=== PATIENT | female | born 1980 | race African-American/Black ===

== ENCOUNTER 2018-09-02 10:24 | Inpatient (IN) | payer OTHER | END 2018-09-09 13:35 | disposition home or self-care (01) | LOC: JER 10:24 → JERBED 13:12 → J8W 14:33 ==

== ENCOUNTER 2018-11-14 13:48 | Emergency (ER) | payer OTHER ==
[2018-11-14 13:53] VITALS: BP 139/86; PULSE 89; TEMP 98.7; BMI 37.9
== END 2018-11-14 15:15 | disposition left against medical advice (07) ==
LOC: JER 13:48
DX: Z53.21 Procedure and treatment not carried out due to patient leaving prior to being seen by health care provider (principal)
CPT/HCPCS: 99281-25

== ENCOUNTER 2018-11-19 10:11 | Observation (INO) | payer OTHER ==
[2018-11-19 11:51] LABS: EOS % 4.7 % (0-4.5); HEMATOCRIT 38.7 % (32.4-45.2); LYMPH % 29.1 % (8-40); MCH 30.4 pg (25.7-33.7); MCHC 33.7 g/dl (32.0-36.0); MEAN CELL VOLUME 90.4 fl (80-96); MEAN PLT VOLUME 8.1 fl (7.5-11.1); MONO % 6.3 % (3.8-10.2); NEUT % 58.9 % (42.8-82.8); PLATELET COUNT 440 K/MM3 (134-434); RBC 4.29 M/mm3 (3.60-5.2); RDW 15.9 % (11.6-15.6); WHITE BLOOD COUNT 9.9 K/mm3 (4.0-10.0)
--- NOTE | 2018-11-19 11:54 | PDOC ---
History of Present Illness - General Chief Complaint: Chest Pain Stated Complaint: ACID REFLUX Time Seen by Provider: 11/19/18 11:11 History Source: Patient Exam Limitations: Clinical Condition - History of Present Illness Initial Comments: 11/19/18 11:54 Patient with h/o GERD, COPD on spiriva, bipola, HTN present with complains of 4 days h/o burning in the middle of her chest everytime she walks for a period of time. Patient on nexium for GERD and report taking daily. Patient report she was diagnosed with PNA 4 months ago and treated. Patient is a current smoker of 5 cigarettes / day. Denies SOB, palpitations, abd pain, vomitin, diarrhea, dizziness, fever, chills, weakness. 3 Timing/Duration: other (4 days) Past History - Past Medical History Allergies/Adverse Reactions: Allergies Allergy/AdvReac Type Severity Reaction Status Date / Time No Known Drug Allergies Allergy Verified 11/19/18 10:27 cat/dog hair Allergy Hives Uncoded 11/19/18 10:27 dust,dander Allergy watery Uncoded 11/19/18 10:27 itchy eyes/nose,hives Home Medications: Ambulatory Orders Amlodipine Besylate [Norvasc -] 10 mg PO DAILY 09/15/13 Fluticasone Prop 0.05% Nasal [Flonase -] 2 spray NS DAILY 09/15/13 Hydrochlorothiazide [Hctz -] 12.5 mg PO DAILY 09/15/13 Budesonide/Formeterol Fumarate [SYMBICORT 160/4.5mcg -] 2 puff IH BID #1 inhaler 09/09/18 Ipratropium/Albuterol Sulfate [Combivent Respimat Inhal [place]] 4 gm IH QID #1 aer.w.adap 09/09/18 Lactobacillus Acidophilus [Bacid -] 1 tab PO DAILY #7 tab 09/09/18 Lisinopril [Prinivil] 5 mg PO DAILY #30 tablet 09/09/18 Montelukast Na [Singulair -] 10 mg PO HS #30 tablet 09/09/18 predniSONE [Deltasone -] 5 mg PO ASDIR #78 tab 09/09/18 Pantoprazole Sodium [Protonix] 40 mg PO DAILY #20 tablet. 11/19/18 Anemia: No Asthma: Yes Cancer: No Cardiac Disorders: Yes (MURMUR) CVA: No COPD: Yes CHF: No Dementia: No Diabetes: No GI Disorders: Yes (acid reflux) Disorders: No HTN: Yes Hypercholesterolemia: No Liver Disease: No Psychiatric Problems: Yes (DEPRESSION, BIPOLAR) Seizures: No Thyroid Disease: No - Surgical History Abdominal Surgery: No Appendectomy: No Cardiac Surgery: No Cholecystectomy: No Lung Surgery: No Neurologic Surgery: No Orthopedic Surgery: No - Immunization History Immunization Up to Date: Yes - Suicide/Smoking/Psychosocial Hx Smoking Status: Yes Smoking History: Never smoked Have you smoked in the past 12 months: Yes Number of Cigarettes Smoked Daily: 10 Information on smoking cessation initiated: No 'Breaking Loose' booklet given: 09/02/18 Hx Alcohol Use: No Drug/Substance Use Hx: No Substance Use Type: Alcohol Hx Substance Use Treatment: Yes (MARIJUANA) Review of Systems - Review of Systems Able to Perform ROS?: Yes Is the patient limited Albanian proficient: No Constitutional: No: Chills, Fever, Malaise HEENTM: No: Symptoms Reported, See HPI, Eye Pain, Blurred Vision, Tearing, Recent change in vision, Double Vision, Cataracts, Ear Pain, Ocular Prothesis, Ear Discharge, Nose Pain, Nose Congestion, Tinnitus, Nose Bleeding, Hearing Loss , Throat Pain, Throat Swelling, Mouth Pain, Dental Problems, Difficulty Swallowing, Mouth Swelling, Other Respiratory: No: Symptoms reported, See HPI, Cough, Orthopnea, Shortness of Breath, SOB with Exertion, SOB at Rest, Stridor, Wheezing, Productive cough, Hemoptysis, Other Cardiac (ROS): Yes: Symptoms Reported, See HPI, Chest Pain (burning sensation in mid-sternum). No: Edema, Irregular Heart Rate, Lightheadedness, Palpitations , Syncope, Chest Tightness, Other ABD/GI: Yes: Symptoms Reported, See HPI, Abdominal Distended, Nausea, Abdominal cramping (intermittent epigastric pain). No: Vomiting : No: Symptoms Reported, Burning, Dysuria, Discharge, Frequency Musculoskeletal: No: Symptoms Reported Neurological: No: Symptoms reported, See HPI, Ataxia All Other Systems: Reviewed and Negative *Physical Exam - Vital Signs Last Vital Signs Temp Pulse Resp BP Pulse Ox 98.5 F 82 17 114/78 99 11/19/18 10:27 11/19/18 10:27 11/19/18 10:27 11/19/18 10:27 11/19/18 10:27 - Physical Exam Comments: 11/19/18 11:53 GENERAL: Well developed, well nourished. Awake and alert. No acute distress. HEENT: Normocephalic, atraumatic. PERRLA, EOMI. No conjunctival pallor. Sclera are non-icteric. Moist mucous membranes. Oropharynx is clear. NECK: Supple. Full ROM. CARDIOVASCULAR: Regular rate and rhythm. No murmurs, rubs, or gallops. Distal pulses are 2+ and symmetric. PULMONARY: No evidence of respiratory distress. Lungs clear to auscultation bilaterally. No wheezing, rales or rhonchi. ABDOMINAL: Soft. Non-tender. Non-distended. No rebound or guarding. No organomegaly. Normoactive bowel sounds. MUSCULOSKELETAL Normal range of motion at all joints. EXTREMITIES: No cyanosis. No clubbing. No edema. No calf tenderness. SKIN: Warm and dry. Normal capillary refill. No rashes. No jaundice. NEUROLOGICAL: Alert, awake, appropriate. Gait is normal without ataxia. PSYCHIATRIC: Cooperative. Good eye contact. Appropriate mood General Appearance: Yes: Nourished, Appropriately Dressed. No: Apparent Distress ED Treatment Course - LABORATORY CBC & Chemistry Diagram: 11/19/18 11:36 11/19/18 13:20 - RADIOLOGY Radiology Studies Ordered: Category Date Time Status CHEST PA & LAT [RAD] Stat Radiology 11/19/18 11:21 Ordered Medical Decision Making - Medical Decision Making 11/19/18 11:57 Patient with h/o GERD, COPD on spiriva, bipola, HTN present with complains of 4 days h/o burning in the middle of her chest everytime she walks for a period of time. Patient on nexium for GERD and report taking daily. Patient report she was diagnosed with PNA 4 months ago and treated. Patient is a current smoker of 5 cigarettes / day. Denies SOB, palpitations, abd pain, vomitin, diarrhea, dizziness, fever, chills, weakness. 11/19/18 11:57 Exam unremarkable with patient is in no acute distress. Normal cardio exam and lungs clear to auscultation bilateral. Symptoms likely acid reflex from GERD versus less likely cardiogenic painarea CBC, CMP, cardiac profile lab ordered. Chest x-ray ordered to rule out acute chest pathology. EKG ordered to rule out acute cardiac symptoms. Reassess after lab and imaging results 11/19/18 15:56 Chest x-ray unremarkable. EKG shows inverted T waves on V3 to V5. Cardiac profile shows elevated troponins of 0.18. CBC within normal limits. Patient in no acute distress. Patient be admitted to telemetry for management of elevated troponins and abnormal EKG. Hospitalists contacted and agrees to admit patient to Dr. Del Toro. Aspirin 162 mg chew tablet ordered. Patient admitted to telemetry. cardiac consult with Dr. Emanuel gunter to discuss starting patient on heparin and pending call back 11/19/18 16:24 still no callback from cardiology. Will give patient 1 dose of heparin and pt admitted to medicine *DC/Admit/Observation/Transfer Diagnosis at time of Disposition: GERD (gastroesophageal reflux disease) Qualifiers: Esophagitis presence: without esophagitis Qualified Code(s): K21.9 - Gastro- esophageal reflux disease without esophagitis Chest pain Qualifiers: Chest pain type: chest pain on breathing Qualified Code(s): R07.1 - Chest pain on breathing - Discharge Dispostion Disposition: TRANSFER ACUTE CARE/OTHER HOSP Condition at time of disposition: Stable Decision to Admit order: Yes - Prescriptions - Referrals - Patient Instructions - Post Discharge Activity
[2018-11-19 13:57] LABS: BILIRUBIN,TOTAL 0.4 mg/dL (0.2-1); BLOOD UREA NITROGEN 12.1 mg/dL (7-18); CALCIUM 9.1 mg/dL (8.5-10.1); CREATININE 0.7 mg/dL (0.55-1.3); POTASSIUM 4.2 mmol/L (3.5-5.1); TOT PROT 7.4 g/dl (6.4-8.2)
[2018-11-19] MEDS ORDERED: ASPIRIN 81 MG CHEWABLE TABLETS PO ONE (14:46)
[2018-11-19] MEDS ORDERED: ASPIRIN 81 MG CHEWABLE TABLETS ONE (15:05)
--- NOTE | 2018-11-19 15:29 | EKG ---
Test Reason : Blood Pressure : / mmHG Vent. Rate : 082 BPM Atrial Rate : 082 BPM P-R Int : 152 ms QRS Dur : 086 ms QT Int : 394 ms P-R-T Axes : 019 027 012 degrees QTc Int : 460 ms NORMAL SINUS RHYTHM T WAVE ABNORMALITY, CONSIDER LATERAL ISCHEMIA ABNORMAL ECG WHEN COMPARED WITH ECG OF 02-SEP-2018 12:19, T WAVE INVERSION NOW EVIDENT IN LATERAL LEADS Confirmed by USMAN STOUT, PAULA ([id number]) on 11/19/2018 3:28:42 PM Referred By: Confirmed By:PAULA MARY MD
[2018-11-19] MEDS ORDERED: HEPARIN NA (PORCINE) 5,000 UNITS/ML 1ML VIAL IVPUSH ONE (16:03)
[2018-11-19] MEDS ORDERED: METOCLOPRAMIDE HCL INJECTION 10 MG/2 ML VIAL IVPUSH PRN (16:06)
[2018-11-19] MEDS ORDERED: HEPARIN NA (PORCINE) 5,000 UNITS/ML 1ML VIAL IVPUSH PRN ×2 (16:08)
[2018-11-19] MEDS ORDERED: HEPARIN - 25,000 UNIT in SODIUM CHLORIDE 495 ML IV SCH (16:15)
[2018-11-19] MEDS ORDERED: PANTOPRAZOLE SODIUM 40 MG VIAL IVPUSH SCH (16:15)
[2018-11-19] MEDS ORDERED: NITROGLYCERIN SUBLINGUAL 1/150 0.4 MG TAB SL PRN (16:28)
--- NOTE | 2018-11-19 16:28 | PN ---
Teaching Attending Note Name of Resident: Santa Alejandre ATTENDING PHYSICIAN STATEMENT I saw and evaluated the patient. I reviewed the resident's note and discussed the case with the resident. I agree with the resident's findings and plan as documented. SUBJECTIVE: Intermittent substernal CP for 4 days with associated SOB. Concurrent nausea and intermittent vomiting - non-bloody. OBJECTIVE: Afebrile, Hemodynamically stable. Last Vital Signs Temp Pulse Resp BP Pulse Ox 98.3 F 80 18 113/83 97 11/19/18 14:01 11/19/18 14:01 11/19/18 14:01 11/19/18 14:01 11/19/18 15:21 HEENT - Atraumatic, Normocephalic. Heart - S1, S2, RRR Lungs - Clear to auscultation Abdomen - High BMI. Soft, non-tender. Bowel Sounds normal. Extremities - No edema, no calf tenderness. Laboratory Results - last 24 hr 11/19/18 11/19/18 11/19/18 11:36 11:36 11:36 WBC 9.9 RBC 4.29 Hgb 13.0 Hct 38.7 MCV 90.4 MCH 30.4 MCHC 33.7 RDW 15.9 H Plt Count 440 H MPV 8.1 Absolute Neuts (auto) 5.9 Neutrophils % 58.9 Lymphocytes % 29.1 Monocytes % 6.3 Eosinophils % 4.7 H D Basophils % 1.0 D Nucleated RBC % 0 Sodium Cancelled Potassium Cancelled Chloride Cancelled Carbon Dioxide Cancelled Anion Gap Cancelled BUN Cancelled Creatinine Cancelled Est GFR (CKD-EPI)AfAm Cancelled Est GFR (CKD-EPI)NonAf Cancelled Random Glucose Cancelled Calcium Cancelled Total Bilirubin Cancelled AST Cancelled ALT Cancelled Alkaline Phosphatase Cancelled Creatine Kinase Cancelled Creatine Kinase Index CK-MB (CK-2) Troponin I Cancelled Total Protein Cancelled Albumin Cancelled 11/19/18 13:20 WBC RBC Hgb Hct MCV MCH MCHC RDW Plt Count MPV Absolute Neuts (auto) Neutrophils % Lymphocytes % Monocytes % Eosinophils % Basophils % Nucleated RBC % Sodium 141 Potassium 4.2 Chloride 110 H Carbon Dioxide 27 Anion Gap 4 L BUN 12.1 Creatinine 0.7 Est GFR (CKD-EPI)AfAm 128.28 Est GFR (CKD-EPI)NonAf 110.69 Random Glucose 96 Calcium 9.1 Total Bilirubin 0.4 AST 57 H ALT 56 Alkaline Phosphatase 87 Creatine Kinase 320 H Creatine Kinase Index 0.4 CK-MB (CK-2) 1.4 Troponin I 0.18 H Total Protein 7.4 Albumin 4.0 Current Medications Generic Name Dose Route Start Last Admin Trade Name Freq PRN Reason Stop Dose Admin Heparin Sodium (Porcine) 1,000 unit 11/19/18 16:08 Heparin - IVPUSH PRN PRN Heparin Heparin Sodium (Porcine) 5,000 unit 11/19/18 16:08 Heparin - IVPUSH PRN PRN Heparin Heparin Sodium (Porcine) 25, 500 mls @ 20 mls/hr 11/19/18 16:15 000 unit/ Sodium Chloride IV TITR [place] Protocol 1,000 UNIT/HR Metoclopramide HCl 10 mg 11/19/18 16:06 Reglan Injection - IVPUSH Q8H PRN NAUSEA AND/OR VOMITING Pantoprazole Sodium 40 mg 11/19/18 16:15 Protonix Iv IVPUSH DAILY [facility] Home Medications Medication Instructions Recorded Amlodipine Besylate [Norvasc -] 10 mg PO DAILY 09/15/13 Fluticasone Prop 0.05% Nasal 2 spray NS DAILY 09/15/13 [Flonase -] Hydrochlorothiazide [Hctz -] 12.5 mg PO DAILY 09/15/13 Budesonide/Formeterol Fumarate 2 puff IH BID #1 inhaler 09/09/18 [SYMBICORT 160/4.5mcg -] Ipratropium/Albuterol Sulfate 4 gm IH QID #1 aer.w.adap 09/09/18 [Combivent Respimat Inhal [place]] Lactobacillus Acidophilus [Bacid -] 1 tab PO DAILY #7 tab 09/09/18 Lisinopril [Prinivil] 5 mg PO DAILY #30 tablet 09/09/18 Montelukast Na [Singulair -] 10 mg PO HS #30 tablet 09/09/18 predniSONE [Deltasone -] 5 mg PO ASDIR #78 tab 09/09/18 Pantoprazole Sodium [Protonix] 40 mg PO DAILY #20 tablet. 11/19/18 ASSESSMENT AND PLAN: 38 year old female with history of HTN, Bipolar Disorder, GERD, obesity, smoker , COPD, MJ user, presents with 4 day history of intermittent burning substernal CP with associated with SOB and concurrent episodic vomiting. 1. Possible ACS Troponin positive - TnI 0.18 ECG - T wave inversion lateral leads. Admit to telemetry monitoring. Serial TropI Heparin drip pending Cardiology eval and repeat TropI. Echo requested. NTG PRN 2. HTN - Normally on Norvasc, HCTZ, Lisinopril. 3. GERD - PPI 4. COPD - Stable. No evidence of exacerbation. Continue Symbicort, DuoNeb prn. DVT Px - on Heparin Drip
--- NOTE | 2018-11-19 16:33 | HP ---
CHIEF COMPLAINT: Burning chest pain PCP: Dr. Balbuena HISTORY OF PRESENT ILLNESS: 38 y/o F with PMHx of Asthma, Chronic Bronchitis, COPD (not on home O2), HTN, GERD, Bipolar, Carpal tunnel syndrome presents with burning chest pain. 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 Patient has walked this route many times and has never experienced SOB so quickly before. This SOB was accompanied by a nonreproducible chest pain described as a 8/10, burning sensation in the mid-sternum that radiates to the middle neck only with exertion and not at rest. Patient mentions this pain feels similar to previous pains he felt during her last admission for PNA. Denies any recent trauma or rash to the area. She is medication compliant including her home dose PPI. Patient did try her nebulizer without any relief. Lastly, she mentions 3 days of NBNB vomiting that she feels is due to her medications and unrelated to her chest pain. Denies any associated fevers, chills, diarrhea, constipation, dysuria, hematuria , hematochezia. ER course was notable for: (1) ASA 162mg Daily (2) (3) Recent Travel: Denies PAST MEDICAL HISTORY: Asthma, Chronic Bronchitis, COPD (not on home O2), HTN, GERD, Bipolar, Carpal tunnel syndrome PAST SURGICAL HISTORY: Social History: Smokin cigerettes daily Alcohol:Denies Drugs: Marijuana once a week Family History: Unknown Allergies No Known Drug Allergies Allergy (Verified 11/19/18 10:27) cat/dog hair Allergy (Uncoded 11/19/18 10:27) Hives dust,dander Allergy (Uncoded 11/19/18 10:27) watery itchy eyes/nose,hives HOME MEDICATIONS: Home Medications Medication Instructions Recorded Amlodipine Besylate [Norvasc -] 10 mg PO DAILY 09/15/13 Fluticasone Prop 0.05% Nasal 2 spray NS DAILY 09/15/13 [Flonase -] Hydrochlorothiazide [Hctz -] 12.5 mg PO DAILY 09/15/13 Budesonide/Formeterol Fumarate 2 puff IH BID #1 inhaler 09/09/18 [SYMBICORT 160/4.5mcg -] Ipratropium/Albuterol Sulfate 4 gm IH QID #1 aer.w.adap 09/09/18 [Combivent Respimat Inhal [place]] Lactobacillus Acidophilus [Bacid -] 1 tab PO DAILY #7 tab 09/09/18 Lisinopril [Prinivil] 5 mg PO DAILY #30 tablet 09/09/18 Montelukast Na [Singulair -] 10 mg PO HS #30 tablet 09/09/18 predniSONE [Deltasone -] 5 mg PO ASDIR #78 tab 09/09/18 Pantoprazole Sodium [Protonix] 40 mg PO DAILY #20 tablet. 11/19/18 REVIEW OF SYSTEMS As per [facility] PHYSICAL EXAMINATION Vital Signs - 24 hr 11/19/18 11/19/18 11/19/18 10:27 14:01 15:21 Temperature 98.5 F 98.3 F Pulse Rate 82 Pulse Rate [ 80 Right Radial] Respiratory 17 18 Rate Blood Pressure 114/78 Blood Pressure 113/83 [Left Arm] O2 Sat by Pulse 99 96 97 Oximetry (%) GENERAL: A&Ox3, NAD HEAD: NCAT EYES: PERRL, EOMI EARS, NOSE, THROAT: MMM NECK: Supple, No JVD LUNGS: CTAB. No wheezes, no crackles HEART: RRR, S1 S2 ABDOMEN: Soft, nontender, not distended, + bowel sounds, no guarding MUSCULOSKELETAL: No CVA tenderness. EXTREMITIES: No peripheral edema. NEUROLOGICAL: Cranial nerves II-XII intact. Normal speech. SKIN: Warm, dry Laboratory Results - last 24 hr 11/19/18 11/19/18 11/19/18 11:36 11:36 11:36 WBC 9.9 RBC 4.29 Hgb 13.0 Hct 38.7 MCV 90.4 MCH 30.4 MCHC 33.7 RDW 15.9 H Plt Count 440 H MPV 8.1 Absolute Neuts (auto) 5.9 Neutrophils % 58.9 Lymphocytes % 29.1 Monocytes % 6.3 Eosinophils % 4.7 H D Basophils % 1.0 D Nucleated RBC % 0 Sodium Cancelled Potassium Cancelled Chloride Cancelled Carbon Dioxide Cancelled Anion Gap Cancelled BUN Cancelled Creatinine Cancelled Est GFR (CKD-EPI)AfAm Cancelled Est GFR (CKD-EPI)NonAf Cancelled Random Glucose Cancelled Calcium Cancelled Total Bilirubin Cancelled AST Cancelled ALT Cancelled Alkaline Phosphatase Cancelled Creatine Kinase Cancelled Creatine Kinase Index CK-MB (CK-2) Troponin I Cancelled Total Protein Cancelled Albumin Cancelled 11/19/18 13:20 WBC RBC Hgb Hct MCV MCH MCHC RDW Plt Count MPV Absolute Neuts (auto) Neutrophils % Lymphocytes % Monocytes % Eosinophils % Basophils % Nucleated RBC % Sodium 141 Potassium 4.2 Chloride 110 H Carbon Dioxide 27 Anion Gap 4 L BUN 12.1 Creatinine 0.7 Est GFR (CKD-EPI)AfAm 128.28 Est GFR (CKD-EPI)NonAf 110.69 Random Glucose 96 Calcium 9.1 Total Bilirubin 0.4 AST 57 H ALT 56 Alkaline Phosphatase 87 Creatine Kinase 320 H Creatine Kinase Index 0.4 CK-MB (CK-2) 1.4 Troponin I 0.18 H Total Protein 7.4 Albumin 4.0 Active Medications Heparin Sodium (Porcine) (Heparin -) 1,000 unit IVPUSH PRN PRN PRN Reason: Heparin Heparin Sodium (Porcine) (Heparin -) 5,000 unit IVPUSH PRN PRN PRN Reason: Heparin Heparin Sodium (Porcine) 25, (000 unit/ Sodium Chloride) 500 mls @ 20 mls/hr IV TITR [place]; Protocol Metoclopramide HCl (Reglan Injection -) 10 mg IVPUSH Q8H PRN PRN Reason: NAUSEA AND/OR VOMITING Nitroglycerin (Nitrostat -) 0.4 mg SL Q5M PRN PRN Reason: FOR CHEST PAIN Pantoprazole Sodium (Protonix Iv) 40 mg IVPUSH DAILY [place] ASSESSMENT/PLAN: 38 y/o F with PMHx of Asthma, Chronic Bronchitis, COPD (not on home O2), HTN, GERD, Bipolar, Carpal tunnel syndrome presents with burning chest pain + SOB. #ACS -Trop 0.18, new TWI in V4-V6 -Given ASA 162mg in ED -Start Heparin GTT -Give Pantoprazole 40mg IV Daily, Metoclopramide 10mg Q8H IV -Trend Trops until downtrending -Check D-Dimer to r/o PE although low suspicion -Check A1c, Lipid profile, TSH, ECHO -Tele -Cardio (Dr. Castellanos) consulted, appreciate rec's #Tobacco use disorder -Still smokes 5 cigarettes a day -Nicotine patch #HTN -Continue home dose Amlodipine, HCTZ, Lisinopril once [facility]'ed #COPD -not currently in exacerbation -Continue home dose bronchodilators #GERD -Continue home dose PPI #FEN -No standing fluids -Lytes WNL, Replete PRN -NPO incase transfer for cath #PPx -DVT: Heparin Gtt Dispo: Tele-Obs Visit type - Emergency Visit Emergency Visit: Yes ED Registration Date: 11/19/18 Care time: The patient presented to the Emergency Department on the above date and was hospitalized for further evaluation of their emergent condition. - New Patient This patient is new to me today: Yes Date on this admission: 11/23/18 - Critical Care Critical Care patient: No ATTENDING PHYSICIAN STATEMENT I saw and evaluated the patient. I reviewed the resident's note and discussed the case with the resident. I agree with the resident's findings and plan as documented. SUBJECTIVE: OBJECTIVE: ASSESSMENT AND PLAN:
--- NOTE | 2018-11-19 16:49 | CON.CARD ---
Consult Consult Specialty:: cardiology Referred by:: Medicine Reason for Consultation:: chest pain - History of Present Illness Chief Complaint: chest pain History of Present Illness: 38F h/o COPD, bipolar disorder, HTN, smoking (5 cigs/day) p/w 4 days of burning in middle of chest when she walks. Has not had before, no cardiac hx. 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 Recently admitted for PNA, treated with abx. - Past Medical History ...LMP: 08/21/18 - Alcohol/Substance Use Hx Alcohol Use: No - Smoking History Smoking history: Never smoked Have you smoked in the past 12 months: Yes Aproximately how many cigarettes per day: 10 Home Medications - Allergies Allergies/Adverse Reactions: Allergies Allergy/AdvReac Type Severity Reaction Status Date / Time No Known Drug Allergies Allergy Verified 11/19/18 10:27 cat/dog hair Allergy Hives Uncoded 11/19/18 10:27 dust,dander Allergy watery Uncoded 11/19/18 10:27 itchy eyes/nose,hives - Home Medications Home Medications: Ambulatory Orders Amlodipine Besylate [Norvasc -] 10 mg PO DAILY 09/15/13 Fluticasone Prop 0.05% Nasal [Flonase -] 2 spray NS DAILY 09/15/13 Hydrochlorothiazide [Hctz -] 12.5 mg PO DAILY 09/15/13 Budesonide/Formeterol Fumarate [SYMBICORT 160/4.5mcg -] 2 puff IH BID #1 inhaler 09/09/18 Ipratropium/Albuterol Sulfate [Combivent Respimat Inhal [place]] 4 gm IH QID #1 aer.w.adap 09/09/18 Lactobacillus Acidophilus [Bacid -] 1 tab PO DAILY #7 tab 09/09/18 Lisinopril [Prinivil] 5 mg PO DAILY #30 tablet 09/09/18 Montelukast Na [Singulair -] 10 mg PO HS #30 tablet 09/09/18 predniSONE [Deltasone -] 5 mg PO ASDIR #78 tab 09/09/18 Pantoprazole Sodium [Protonix] 40 mg PO DAILY #20 tablet. 11/19/18 Family Disease History - Family Disease History Family History: Unable to Obtain (unknown, mother was adopted no contact with father) Review of Systems - Review of Systems Constitutional: reports: No Symptoms Eyes: reports: No Symptoms HENT: reports: No Symptoms Neck: reports: No Symptoms Cardiovascular: reports: No Symptoms Respiratory: reports: No Symptoms Gastrointestinal: reports: No Symptoms Genitourinary: reports: No Symptoms Musculoskeletal: reports: No Symptoms Integumentary: reports: No Symptoms Neurological: reports: No Symptoms Endocrine: reports: No Symptoms Hematology/Lymphatic: reports: No Symptoms Psychiatric: reports: No Symptoms Vital Signs: Vital Signs Temperature 98.3 F 11/19/18 14:01 Pulse Rate 80 11/19/18 14:01 Respiratory Rate 18 11/19/18 14:01 Blood Pressure 113/83 11/19/18 14:01 O2 Sat by Pulse Oximetry (%) 97 11/19/18 15:21 Constitutional: Yes: No Distress, Calm Eyes: Yes: Conjunctiva Clear, EOM Intact HENT: Yes: Atraumatic, Normocephalic Neck: Yes: Supple, Trachea Midline Respiratory: Yes: Regular, CTA Bilaterally Gastrointestinal: Yes: Normal Bowel Sounds, Soft Cardiovascular: Yes: Regular Rate and Rhythm JVD: No PMI: Non-Displaced Extremities: No: Cold Edema: No Neurological: Yes: Alert, Oriented Psychiatric: No: Agitated - Other Data Labs, Other Data: CBC, BMP 11/19/18 11:36 11/19/18 13:20 Troponin, BNP 11/19/18 11/19/18 11:36 13:20 Troponin I Cancelled 0.18 H Troponin, BNP 11/19/18 11/19/18 11:36 13:20 Troponin I Cancelled 0.18 H Assessment/Plan echo 08/2018 mild conc LVH, nl LV function, LA mildly dilated, mild TR, mild MR EKG: sinus, lateral TWI new compared to EKG 08/2018 tele: sinus chest pain - history concerning for angina, trop 0.18 with new EKG changes - d-dimer and repeat trop pending - cont heparin gtt, cont aspirin - if trop rising, [place] transfer [place] [facility]. discussed with interventionalist Dr. Yarbrough and patient HTN - cont home meds smoking - 5 cigs a day - encouraged cessation COPD, asthma - manage per primary
[2018-11-19 17:24] VITALS: TEMP 98.4; BMI 37.5
[2018-11-19 20:57] LABS: COCAINE, UR NEGATIVE ng/ml (CUTOFF=300); METHADONE, UR NEGATIVE ng/ml (CUTOFF=300); OPIATES, URI NEGATIVE ng/ml (CUTOFF=300); PHENCYCLIDINE,URINE NEGATIVE ng/ml (CUTOFF=25); URINE AMPHETAMINES NEGATIVE ng/ml (CUTOFF=500); URINE BARBITURATES NEGATIVE ng/ml (CUTOFF=200); URINE BENZODIAZEPINES NEGATIVE ng/ml (CUTOFF=200)
[2018-11-19 21:43] VITALS: BP 146/98; PULSE 78
[2018-11-20] MEDS ORDERED: NICOTINE 7 MG/24 HOURS TOPICAL PATCH TD SCH (10:00)
--- NOTE | 2018-11-20 11:52 | EKG ---
Test Reason : Blood Pressure : / mmHG Vent. Rate : 071 BPM Atrial Rate : 071 BPM P-R Int : 170 ms QRS Dur : 072 ms QT Int : 392 ms P-R-T Axes : 019 034 011 degrees QTc Int : 425 ms NORMAL SINUS RHYTHM SEPTAL INFARCT , AGE UNDETERMINED NONSPECIFIC T WAVE ABNORMALITY Confirmed by JAMESON CHUNG MD ([id number]) on 11/20/2018 11:52:16 AM Referred By: Confirmed By:JAMESON CHUNG MD
== END 2018-11-20 | disposition short-term general hospital (02) | DRG 311 ==
LOC: JER 10:11 → INTOOBSV 14:44 → JERBED 14:44 → UNDOADMOB 14:44 → JERBED 15:57 → J4W 16:16 → JERBED 16:16 → UNDODISOB 11-20
PROC: 3E033GC Introduction of Other Therapeutic Substance into Peripheral Vein, Percutaneous Approach (ICD-10-PCS; principal; 2018-11-19)
DX: K21.9 Gastro-esophageal reflux disease without esophagitis (principal); R07.89 Other chest pain; F31.89 Other bipolar disorder; J42 Unspecified chronic bronchitis; I10 Essential (primary) hypertension; F17.210 Nicotine dependence, cigarettes, uncomplicated; R01.1 Cardiac murmur, unspecified
CPT/HCPCS: 36415; 71046-TC-FY; 80053; 80307; 82550; 82553; 84484; 85025; 85379; 93005; 93010; 96374; 96375; 96376; 99284-25; G0378; J1644

== ENCOUNTER 2023-07-18 10:06 | Emergency (ER) | payer OTHER ==
[2023-07-18 10:19] VITALS: BP 125/81; PULSE 103; RESP 18; TEMP 98; BMI 41.1
[2023-07-18 10:45] LABS: BASO % 1.4 % (0-2.0); EOS % 2.1 % (0-4.5); HEMATOCRIT 40.2 % (32.4-45.2); HEMOGLOBIN 13.6 GM/dL (10.7-15.3); LYMPH % 27.2 % (8-40); MCH 31.2 pg (25.7-33.7); MCHC 33.9 g/dl (32.0-36.0); MEAN CELL VOLUME 91.8 fl (80-96); MEAN PLT VOLUME 8.4 fl (7.5-11.1); MONO % 8.9 % (3.8-10.2); NEUT % 60.4 % (42.8-82.8); PLATELET COUNT 398 10^3/uL (134-434); RBC 4.37 M/mm3 (3.60-5.2)
[2023-07-18 11:01] LABS: POTASSIUM 4.6 mmol/L (3.5-5.1)
[2023-07-18 11:03] LABS: CALCIUM 9.3 mg/dL (8.5-10.1)
[2023-07-18 11:04] LABS: BLOOD UREA NITROGEN 14.2 mg/dL (7-18)
[2023-07-18 11:07] LABS: CREATININE 0.7 mg/dL (0.55-1.3)
== END 2023-07-18 15:12 | disposition home or self-care (01) ==
LOC: JER 10:06
DX: Z34.91 Encounter for supervision of normal pregnancy, unspecified, first trimester (principal); Z3A.01 Less than 8 weeks gestation of pregnancy
CPT/HCPCS: 36415; 76817-TC; 80048; 84702; 85025; 99284-25

== ENCOUNTER 2024-02-06 08:38 | Emergency (ER) | payer OTHER ==
[2024-02-06 08:51] VITALS: BMI 42.5
[2024-02-06] MEDS ORDERED: AMOX TR/POT CLAV 875MG/125MG TABLETS (FP) ONE (10:40)
[2024-02-06] MEDS ORDERED: MAG HYDROX/AL HYDROX/SIMETH 30 ML UNIT-DOSE CUP ONE (10:41)
[2024-02-06 10:43] LABS: BASO % 0.7 % (0-2.0); EOS % 1.7 % (0-4.5); HEMATOCRIT 40.9 % (32.4-45.2); HEMOGLOBIN 13.6 GM/dL (10.7-15.3); LYMPH % 22.6 % (8-40); MCH 30.6 pg (25.7-33.7); MCHC 33.3 g/dl (32.0-36.0); MEAN PLT VOLUME 8.6 fl (7.5-11.1); MONO % 7.8 % (3.8-10.2); NEUT % 67.2 % (42.8-82.8); PLATELET COUNT 382 10^3/uL (134-434); RBC 4.45 M/mm3 (3.60-5.2); RDW 14.9 % (11.6-15.6); WHITE BLOOD COUNT 16.4 K/mm3 (4.0-10.0)
[2024-02-06] MEDS: MAG HYDROX/AL HYDROX/SIMETH 30 ML UNIT-DOSE CUP PO ONE (10:50)
[2024-02-06] MEDS: AMOXICILLIN 500 MG CAPSULE (FP) PO ONE (10:52)
[2024-02-06 10:58] LABS: POTASSIUM 5.2 mmol/L (3.5-5.1)
[2024-02-06 10:59] LABS: CALCIUM 9.4 mg/dL (8.5-10.1)
[2024-02-06 11:00] LABS: BLOOD UREA NITROGEN 11.4 mg/dL (7-18)
[2024-02-06 11:03] LABS: CREATININE 0.7 mg/dL (0.55-1.3)
[2024-02-06 11:05] LABS: BILIRUBIN,TOTAL 0.5 mg/dL (0.2-1)
[2024-02-06 12:15] VITALS: BP 144/75; PULSE 103; RESP 20; TEMP 97
[2024-02-06 15:48] LABS: HIV INTERPRETATION NEGATIVE (NEGATIVE)
== END 2024-02-06 12:16 | disposition home or self-care (01) ==
LOC: JER 08:38
DX: O09.519 Supervision of elderly primigravida, unspecified trimester (principal); O99.519 Diseases of the respiratory system complicating pregnancy, unspecified trimester; J01.90 Acute sinusitis, unspecified; O99.891 Other specified diseases and conditions complicating pregnancy; R42 Dizziness and giddiness; Z3A.00 Weeks of gestation of pregnancy not specified; Z20.822 Contact with and (suspected) exposure to COVID-19
CPT/HCPCS: 0241U-QW; 36415; 80053; 84702; 85025; 86803; 87389; 93005; 93010; 99284-25

== ENCOUNTER 2024-04-11 08:23 | Emergency (ER) | payer OTHER ==
[2024-04-11 08:29] VITALS: BP 130/51; PULSE 101; RESP 18; TEMP 99; BMI 42.3
[2024-04-11] MEDS ORDERED: ONDANSETRON 4 MG/2 ML VIAL ONE (10:05)
[2024-04-11] MEDS ORDERED: ALBUTEROL SO4 2.5/IPRATROPIUM 0.5 INH SOL 3 ML VIAL.NEB. NEB ONE (10:05)
[2024-04-11] MEDS ORDERED: ACETAMINOPHEN INJECTION 100 ML ONE (10:05)
[2024-04-11] MEDS: ACETAMINOPHEN 1000 MG/100 ML BAG IVPB ONE (10:31)
[2024-04-11] MEDS: ALBUTEROL SO4 2.5/IPRATROPIUM 0.5 INH SOL 3 ML VIAL.NEB. NEB ONE (10:31)
[2024-04-11] MEDS: ONDANSETRON 4 MG/2 ML VIAL IVPUSH ONE (10:31)
[2024-04-11] MEDS: SODIUM CHLORIDE 0.9% 500 ML INFUS.BAG IV ONE (10:31)
== END 2024-04-11 12:03 | disposition home or self-care (01) ==
LOC: JER 08:23
PROC: 3E033NZ Introduction of Analgesics, Hypnotics, Sedatives into Peripheral Vein, Percutaneous Approach (ICD-10-PCS; principal; 2024-04-11)
PROC: 3E033GC Introduction of Other Therapeutic Substance into Peripheral Vein, Percutaneous Approach (ICD-10-PCS; 2024-04-11)
PROC: 3E0F7GC Introduction of Other Therapeutic Substance into Respiratory Tract, Via Natural or Artificial Opening (ICD-10-PCS; 2024-04-11)
DX: J10.1 Influenza due to other identified influenza virus with other respiratory manifestations (principal); R09.81 Nasal congestion; R05.9 Cough, unspecified; Z20.822 Contact with and (suspected) exposure to COVID-19
CPT/HCPCS: 0241U-QW; 94640; 96374; 96375; 99284-25; J0131